=== PATIENT | female | born 1955 | race Caucasian/White ===

== ENCOUNTER 2021-08-02 13:37 | Inpatient (IN) | payer MEDICARE, OTHER ==
[~2021-08-02] VITALS: Ht 170.2 cm; Wt 87.1 kg
[~2021-08-02 13:37] MED LIST: ACETAMINOPHEN325 MG PO; BENZTROPINE MESY1 MG PO; BETAPACE80 MG PO; BUMETANIDE1 MG PO; CARDIZEM CD240 MG PO; CLOTRIMAZOLE45 GM TOP; COGENTIN2 MG/2 ML PO; DUONEB 2.5-0.5M1 AMP INH; ELIQUIS5 MG PO; LEVAQUIN750 MG PO; LOPRESSOR50 MG PO; MICON-GUARD 2% TOP; NORVASC5 MG PO; PREDNISONE 20MG20 MG PO; PREDNISONE5 MG PO; PULMICORT0.5 MG/2 M NEB; RISPERDAL3 MG PO; SINGULAIR10 MG PO
[2021-08-02 14:10] LABS: BASOPHIL 0.4 % (0-2); EOSINOPHIL 0 % (0-7); HCT 43.9 % (37.0-47.0); HGB 13.8 g/dl (12.5-16.0); LYMPHOCYTE 20.3 % (15-48); MCH 28.9 pg (25.0-31.0); MCHC 31.4 g/dL (32.0-36.0); MCV 91.8 fL (78.0-100.0); MONOCYTE 12.6 % (0-12); NEUTROPHIL 66.2 % (41-80); NRBC 0; PLT 437 K/uL (150-400); RBC 4.78 M/uL (4.20-5.40); RDW 14.6 % (11.5-14.0); WBC 16.8 K/uL (4.0-10.5)
[2021-08-02 14:55] LABS: ALBUMIN 2.4 g/dL (3.4-5.0); BILIRUBIN - TOTAL 0.4 mg/dL (0.2-1.0); BUN/CREAT RATIO (CALC) 55.8 RATIO; CREATININE 0.43 mg/dL (0.51-0.95); GLOBULIN (CALCULATION) 5.8 g/dL; POTASSIUM 3.8 mmol/L (3.5-5.1); TOTAL PROTEIN 8.2 g/dL (6.4-8.2)
[2021-08-02 15:13] LABS: BILIRUBIN NEGATIVE (NEGATIVE); BLOOD TRACE-INTACT Ery/uL (NEGATIVE); CLARITY HAZY (CLEAR); COLOR YELLOW (YELLOW); GLUCOSE (U) NORMAL (NORMAL); LEUKOCYTES NEGATIVE Leu/uL (NEGATIVE); NITRITE NEGATIVE (NEGATIVE); PROTEIN NEGATIVE (NEGATIVE); pH 6.5 (5.0-9.0)
[2021-08-02 15:21] LABS: URINARY WBC RARE
[2021-08-02 15:22] LABS: BACTERIA 1+; MUCOUS MODERATE
[2021-08-02] MEDS ORDERED: BENZTROPINE MESY1 MG PO (17:56)
[2021-08-02] MEDS ORDERED: VENTOLIN HFA IN18 GM INH (17:56)
[2021-08-02] MEDS ORDERED: BUMEX1 MG PO (17:57)
[2021-08-02] MEDS ORDERED: DILTIAZEM 24HR240 M1 PO (17:58)
[2021-08-02] MEDS ORDERED: DEPAKOTE SPRIN125 M2 PO (17:58)
[2021-08-02] MEDS ORDERED: JUVEN PACKET1 EAC1 PO (17:59)
[2021-08-02] MEDS ORDERED: ELIQUIS5 MG PO (17:59)
[2021-08-02] MEDS ORDERED: MELATONIN 5 MG1 EACH PO (18:00)
[2021-08-02] MEDS ORDERED: ATIVAN0.5 MG PO (18:00)
[2021-08-02] MEDS ORDERED: MYCOLOG15 GM TOP (18:01)
[2021-08-02] MEDS ORDERED: SANTYL15 GM TOP (18:01)
[2021-08-02] MEDS ORDERED: RISPERDAL 1MG TA1 MG PO (18:01)
[2021-08-02] MEDS ORDERED: SINGULAIR10 MG PO (18:02)
[2021-08-02] MEDS ORDERED: SENOKOT8.6 MG PO (18:02)
[2021-08-02] MEDS ORDERED: BETAPACE80 MG PO (18:03)
[2021-08-02] MEDS ORDERED: ULTRAM50 MG PO (18:03)
[2021-08-02] MEDS ORDERED: ACETAMINOPHEN325 MG PO (18:04)
--- NOTE | 2021-08-02 22:11 | NUR ---
PT NOT ALERT AND ORIENTED TO ADMINSTER MEDICATION.
--- NOTE | 2021-08-03 02:08 | NUR ---
BLADDER SCAN PERFORMED 99ML NOTED.
[2021-08-03 06:14] LABS: BASOPHIL 0.5 % (0-2); EOSINOPHIL 0.1 % (0-7); HCT 36.2 % (37.0-47.0); HGB 11.3 g/dl (12.5-16.0); MCH 29.6 pg (25.0-31.0); MCHC 31.2 g/dL (32.0-36.0); MCV 94.8 fL (78.0-100.0); MONOCYTE 12.1 % (0-12); MPV 10.2 fL (6.0-9.5); NRBC 0; PLT 329 K/uL (150-400); RBC 3.82 M/uL (4.20-5.40); RDW 14.6 % (11.5-14.0); WBC 14.6 K/uL (4.0-10.5)
[2021-08-03 06:37] LABS: BUN/CREAT RATIO (CALC) 46.4 RATIO; CREATININE 0.28 mg/dL (0.51-0.95); POTASSIUM 3.1 mmol/L (3.5-5.1)
--- NOTE | 2021-08-03 15:01 | NUR ---
08/03/21 Ms. Yadav is a resident at [facility] and wishes to return. [facility] will accept back per [facility].
--- NOTE | 2021-08-04 01:42 | NUR ---
PT IN/OUT A FIB, DANY [facility]CR[facility] IN HOUSE NOTIFIED. PT HAS EXISTING DIAG OF A FIB & LOOKING BACK HAS BEEN IN/OUT INTERMITTENLY SINCE ADMIT. CHECKED ON PT DIRECTLY; RESTING WELL. NO C/O. ALL NEEDS MET; ALL ITEMS WITHIN REACH INCL CALL LIGHT. WILL CONT TO MONITOR.
--- NOTE | 2021-08-04 02:33 | NUR ---
[employer] AUTHORIZED TELE PARAMETER CHANGE D/T IN/OUT A FIB. WILL CONT TO MONITOR PT.
[2021-08-04 03:48] LABS: BASOPHIL 0.7 % (0-2); EOSINOPHIL 0.6 % (0-7); HCT 33.1 % (37.0-47.0); HGB 10.3 g/dl (12.5-16.0); LYMPHOCYTE 25.9 % (15-48); MCH 29.8 pg (25.0-31.0); MCHC 31.1 g/dL (32.0-36.0); MCV 95.7 fL (78.0-100.0); MONOCYTE 10.2 % (0-12); MPV 10.2 fL (6.0-9.5); NEUTROPHIL 62.2 % (41-80); NRBC 0; PLT 308 K/uL (150-400); RBC 3.46 M/uL (4.20-5.40); RDW 14.6 % (11.5-14.0); WBC 13.5 K/uL (4.0-10.5)
[2021-08-04 04:00] LABS: BUN/CREAT RATIO (CALC) 32.1 RATIO; CREATININE 0.28 mg/dL (0.51-0.95); POTASSIUM 3.7 mmol/L (3.5-5.1)
--- NOTE | 2021-08-04 04:53 | NUR ---
VANC DOSAGE CHANGED D/T TROUGH & AFTER SPEAKING WITH NIGHT PHARM "FADY" CHANGED TO 1250MG.
--- NOTE | 2021-08-04 11:03 | NUR ---
INFORMED THAT HR 147 MD ORDERING MEDS
--- NOTE | 2021-08-04 16:24 | NUR ---
INFORMED DR OF PT H/R OF 145 INFORMED OF B/P 104/58, NO NEW ORDERS
--- NOTE | 2021-08-05 14:17 | NUR ---
08/05 A new COVID test is required before returning to [facility] - Dr. Jon was informed.
[2021-08-06] MEDS ORDERED: CEFDINIR300 MG PO (09:28)
[2021-08-06] MEDS ORDERED: ULTRAM50 MG PO (09:28)
[2021-08-06] MEDS ORDERED: ATIVAN0.5 MG PO (09:28)
== END 2021-08-06 14:47 | DRG 871 ==
LOC: FER 13:37 → FMS 16:26
PROVIDERS: Internal Medicine; ADMIT Internal Medicine
DX: A41.9 Sepsis, unspecified organism (principal); L89.323 Pressure ulcer of left buttock, stage 3; L89.313 Pressure ulcer of right buttock, stage 3; J18.9 Pneumonia, unspecified organism; G93.41 Metabolic encephalopathy; J44.0 Chronic obstructive pulmonary disease with (acute) lower respiratory infection; I96 Gangrene, not elsewhere classified; F05 Delirium due to known physiological condition; F20.0 Paranoid schizophrenia; F03.91 Unspecified dementia, unspecified severity, with behavioral disturbance; I10 Essential (primary) hypertension; E66.01 Morbid (severe) obesity due to excess calories; G40.909 Epilepsy, unspecified, not intractable, without status epilepticus; F41.9 Anxiety disorder, unspecified; G20 Parkinson's disease; I48.0 Paroxysmal atrial fibrillation; Z20.822 Contact with and (suspected) exposure to COVID-19; F20.9 Schizophrenia, unspecified; E11.9 Type 2 diabetes mellitus without complications; L89.611 Pressure ulcer of right heel, stage 1; L89.892 Pressure ulcer of other site, stage 2; Y95 Nosocomial condition; F17.200 Nicotine dependence, unspecified, uncomplicated; Z98.41 Cataract extraction status, right eye; Z98.42 Cataract extraction status, left eye; Z80.0 Family history of malignant neoplasm of digestive organs; Z80.8 Family history of malignant neoplasm of other organs or systems; Z83.6 Family history of other diseases of the respiratory system; Z79.01 Long term (current) use of anticoagulants
CPT/HCPCS: 36415; 36600; 70450; 71045; 73610; 73630; 80048; 80053; 80202; 81001; 82150; 82803; 82962; 83605; 83735; 84145; 84484; 85025; 87040; 93005; 94640; 94760; J0692; J2543; J3370; J3480; J7030; J7050; U0002

== ENCOUNTER 2022-03-21 16:53 | Emergency (ER) | payer MEDICARE, OTHER ==
[~2022-03-21 16:53] MED LIST changes: +ATIVAN0.5 MG PO; +BUMEX1 MG PO; +CEFDINIR300 MG PO; +DEPAKOTE SPRIN125 M2 PO; +DILTIAZEM 24HR240 M1 PO; +JUVEN PACKET1 EAC1 PO; +MELATONIN 5 MG1 EACH PO; +MYCOLOG15 GM TOP; +RISPERDAL 1MG TA1 MG PO; +SANTYL15 GM TOP; +SENOKOT8.6 MG PO; +ULTRAM50 MG PO; +VENTOLIN HFA IN18 GM INH
== END 2022-03-21 21:44 | disposition home or self-care (01) ==
LOC: FER 16:53
DX: R06.02 Shortness of breath (principal); G20 Parkinson's disease; Z28.310 Unvaccinated for COVID-19
CPT/HCPCS: 71250

== ENCOUNTER 2022-06-04 22:03 | Inpatient (IN) | payer MEDICARE, OTHER ==
[~2022-06-04] VITALS: Ht 160 cm; Wt 91.0 kg
[2022-06-04 22:42] LABS: BASOPHIL 0.5 % (0-2); EOSINOPHIL 1.2 % (0-7); HCT 43.6 % (37.0-47.0); HGB 13.3 g/dl (12.5-16.0); LYMPHOCYTE 32.3 % (15-48); MCH 28.3 pg (25.0-31.0); MCHC 30.5 g/dL (32.0-36.0); MCV 92.8 fL (78.0-100.0); MONOCYTE 8.5 % (0-12); MPV 9.7 fL (6.0-9.5); NEUTROPHIL 57.2 % (41-80); NRBC 0; PLT 361 K/uL (150-400); RDW 17.7 % (11.5-14.0); WBC 10.5 K/uL (4.0-10.5)
[2022-06-04 22:53] LABS: INR 1.27 (0.9-1.2); PROTHROMBIN TIME 15.5 SECONDS (11.9-13.9); PTT 45.6 SECONDS (24.9-34.6)
[2022-06-04 23:19] LABS: INFLUENZA A NAA NEGATIVE (NEGATIVE)
[2022-06-04 23:31] LABS: LACTIC ACID 0.6 mmol/L (0.4-1.9)
[2022-06-04 23:32] LABS: CORONAVIRUS 2019 SARS-COV-2 POSITIVE (NEGATIVE)
[2022-06-04 23:33] LABS: BILIRUBIN NEGATIVE (NEGATIVE); BLOOD 3+ Ery/uL (NEGATIVE); CLARITY CLOUDY (CLEAR); COLOR YELLOW (YELLOW); GLUCOSE (U) NORMAL (NORMAL); LEUKOCYTES 2+ Leu/uL (NEGATIVE); NITRITE POSITIVE (NEGATIVE); PROTEIN TRACE (LOW) mg/dL (NEGATIVE)
[2022-06-04 23:50] LABS: ECSTASY (MDMA) NEGATIVE (NEGATIVE); MARIJUANA (THC) NEGATIVE (NEGATIVE); METHADONE POSITIVE (NEGATIVE); OPIATES POSITIVE (NEGATIVE)
[2022-06-04 23:51] LABS: AMPHETAMINES NEGATIVE (NEGATIVE); BARBITURATES NEGATIVE (NEGATIVE); OXYCODONE NEGATIVE (NEGATIVE)
[2022-06-04 23:53] LABS: BACTERIA 2+
[2022-06-05 00:35] LABS: ACETAMINOPHEN (TYLENOL) < 2.0 ug/mL (10.0-30.0); ALBUMIN 2.6 g/dL (3.4-5.0); ALKALINE PHOSHATASE 70 U/L (46-116); ALT 14 U/L (14-59); AST 11 U/L (15-37); BILIRUBIN - TOTAL 0.3 mg/dL (0.2-1.0); BUN 18 mg/dL (7-18); BUN/CREAT RATIO (CALC) 34.6 RATIO; CHLORIDE 103 mmol/L (98-107); CO2 (BICARBONATE) 38 mmol/L (21-32); CREATININE 0.52 mg/dL (0.51-0.95); GLOBULIN (CALCULATION) 3.4 g/dL; GLUCOSE 112 mg/dL (74-106); POTASSIUM 3.8 mmol/L (3.5-5.1)
[2022-06-05] MEDS ORDERED: BETADINE30 ML TOP (04:50)
[2022-06-05] MEDS ORDERED: DEPAKOTE ER500 MG PO (04:53)
[2022-06-05] MEDS ORDERED: HYDROCODON-ACE1 EAC2 PO ×2 (04:54→04:55)
[2022-06-05] MEDS ORDERED: JUVEN PACKET1 EAC1 PO (04:55)
[2022-06-05] MEDS ORDERED: LEVOTHYROXINE50 MC1 PO (04:57)
[2022-06-05] MEDS ORDERED: ATIVAN0.5 MG PO (04:58)
[2022-06-05] MEDS ORDERED: REMERON15 MG PO (04:59)
[2022-06-05] MEDS ORDERED: DAILY VALUE1 EACH PO (05:00)
[2022-06-05] MEDS ORDERED: SANTYL15 GM TOP (05:03)
[2022-06-05] MEDS ORDERED: ONDANSETRON ODT4 MG PO (05:04)
[2022-06-05 09:00] LABS: ALBUMIN 2.6 g/dL (3.4-5.0); BILIRUBIN - TOTAL 0.3 mg/dL (0.2-1.0); BUN/CREAT RATIO (CALC) 23.7 RATIO; CREATININE 0.38 mg/dL (0.51-0.95); GLOBULIN (CALCULATION) 3.9 g/dL; MAGNESIUM 1.8 mg/dL (1.8-2.4); POTASSIUM 3.9 mmol/L (3.5-5.1); TOTAL PROTEIN 6.5 g/dL (6.4-8.2)
[2022-06-06 06:34] LABS: HCT 41.7 % (37.0-47.0); HGB 12.9 g/dl (12.5-16.0); MCH 28.2 pg (25.0-31.0); MCHC 30.9 g/dL (32.0-36.0); MPV 9.8 fL (6.0-9.5); RBC 4.58 M/uL (4.20-5.40); RDW 17.2 % (11.5-14.0); WBC 7.4 K/uL (4.0-10.5)
[2022-06-06 07:08] LABS: CREATININE 0.4 mg/dL (0.51-0.95); POTASSIUM 3.8 mmol/L (3.5-5.1)
[2022-06-06] MEDS ORDERED: AUGMENTIN 500-1 EACH PO (11:18)
[2022-06-06] MEDS ORDERED: NORCO 5-325 TA1 EACH PO (11:18)
[2022-06-08 16:11] LABS: METHADONE Negative (Cutoff=100)
== END 2022-06-06 15:50 | DRG 91 ==
LOC: FER 22:03 → FTCU 06-05 02:17
PROVIDERS: Internal Medicine; Nurse Practitioner; ADMIT Family Medicine
PROC: 5A09357 Assistance with Respiratory Ventilation, Less than 24 Consecutive Hours, Continuous Positive Airway Pressure (ICD-10-PCS; principal; 2022-06-04)
PROC: 0T9B70Z Drainage of Bladder with Drainage Device, Via Natural or Artificial Opening (ICD-10-PCS; 2022-06-04)
PROC: 8E0ZXY6 Isolation (ICD-10-PCS; 2022-06-05)
DX: G92.8 Other toxic encephalopathy (principal); J96.21 Acute and chronic respiratory failure with hypoxia; U07.1 COVID-19; J96.22 Acute and chronic respiratory failure with hypercapnia; N30.00 Acute cystitis without hematuria; F20.0 Paranoid schizophrenia; L89.150 Pressure ulcer of sacral region, unstageable; Z66 Do not resuscitate; T40.605A Adverse effect of unspecified narcotics, initial encounter; T42.4X5A Adverse effect of benzodiazepines, initial encounter; E11.65 Type 2 diabetes mellitus with hyperglycemia; R29.810 Facial weakness; J44.9 Chronic obstructive pulmonary disease, unspecified; E11.621 Type 2 diabetes mellitus with foot ulcer; L97.519 Non-pressure chronic ulcer of other part of right foot with unspecified severity; F32.A Depression, unspecified; F41.9 Anxiety disorder, unspecified; E66.9 Obesity, unspecified; G20 Parkinson's disease; M62.40 Contracture of muscle, unspecified site; G40.909 Epilepsy, unspecified, not intractable, without status epilepticus; Z68.35 Body mass index [BMI] 35.0-35.9, adult; Z87.891 Personal history of nicotine dependence; Z80.0 Family history of malignant neoplasm of digestive organs; Z98.41 Cataract extraction status, right eye; Z98.42 Cataract extraction status, left eye; Z79.01 Long term (current) use of anticoagulants; Z74.01 Bed confinement status
CPT/HCPCS: 36415; 36600; 70450; 71250; 80048; 80053; 80164; 80305; 81001; 82140; 82803; 82962; 83036; 83605; 83735; 83880; 84145; 84484; 85025; 85610; 85730; 87040; 87088; 92523; 93005; 94660; 94760; 96361; 96365; 96375; 97162; 97166; G0480; J1100; J2310; J2543; J7030; U0002